=== PATIENT | male | born 1960 | race Caucasian/White ===

== ENCOUNTER 2020-04-22 09:06 | Emergency (ER) | payer MEDICARE, MEDICAID, SELFPAY ==
[2020-04-22 09:07] VITALS: BP 143/105; PULSE 77; RESP 18; TEMP 36.3; O2SAT 97; BMI 32.5
--- NOTE | 2020-04-22 09:17 | ED_ITS ---
HPI - Abdominal Pain General: Chief Complaint: Abdominal Pain Stated Complaint: POSSIBLE HERNIA Time Seen by Provider: 04/22/20 09:08 Source: patient and other (caregiver) Mode of arrival: ambulatory Limitations: no limitations History of Present Illness: HPI narrative: Patient is a 59-year-old male who presents to ED today along with his caregiver for complaints of an increasingly painful umbilical hernia. Caregiver states that patient has had the hernia almost his entire life. He states over the past year he has intermittently began to complain of pain and has even more so been complaining over the past few weeks. Patient was seen by their PCP and referred to the emergency department for further evaluation. They have never sought evaluation from a general surgeon previously. Patient is still passing gas and having normal bowel movements. He has not been running fevers. No vomiting. MD elicited complaint: other (umbilical hernia) Pain Consistency: intermittent Location: Periumbilical Radiation: none Migration to: no migration Associated Symptoms: Denies change in bowel habits, change in stool character, chills, diarrhea, dysuria, fever(s), nausea and vomiting Review of Systems Const: Denies: fever(s), chills, body aches, fatigue or malaise Card: Denies: chest pain Resp: Denies: dyspnea GI: Reports: abdominal pain (intermittent); Denies: nausea, vomiting, diarrhea, change in bowel habits, pain on defecation or change in stool character : Denies: flank pain, difficulty urinating, dysuria, urinary frequency, urinary urgency or urinary hesitancy Physical Exam Const: COMMON NORMALS: no acute distress, average body habitus, patient oriented x3, no limitations, healthy appearing, alert and well nourished Resp: COMMON NORMALS: normal respiratory effort and clear to auscultation bilaterally AUSCULTATION: clear to auscultation bilaterally Cardio: COMMON NORMALS: regular rate and regular rhythm RATE: regular rate RHYTHM: regular rhythm GI: COMMON NORMALS: Soft to palpation, No hepatosplenomegaly present and no masses INSPECTION: Yes other (umbilical hernia) AUSCULTATION: Yes normoactive bowel sounds PALPATION: Yes Soft to palpation, Yes Tenderness to palpation present (GI) (mild tenderness over umbilical hernia) and Yes No hepatosplenomegaly present Neuro: COMMON NORMALS: patient oriented x3 SENSORIUM/ORIENTATION: Yes alert Course Vital Signs: Vital signs: Vital Signs Temperature 97.3 F L 04/22/20 09:07 Pulse Rate 77 04/22/20 09:07 Respiratory Rate 18 04/22/20 09:07 Blood Pressure 143/105 04/22/20 09:07 Pulse Oximetry 97 04/22/20 09:07 MDM - Abdominal Pain MDM Narrative: Medical decision making narrative: Umbilical hernia has been present for several years now and caregiver thinks it has been present since . It is not reducible on exam however patient tells me it never has been able to be reduced. CT scan shows fat-containing umbilical hernia. No obstruction. Patient's vitals and labs all are non-concerning. He is stable to follow-up with general surgery as an outpatient at this time. Strict return to ED precautions given. Lab Data: Labs: Lab Results 04/22/20 04/22/20 04/22/20 Range/Units 09:34 09:34 09:34 WBC 8.6 (4.0-10.0) 10^3/ uL RBC 5.25 (4.1-5.3) 10^6/u L Hgb 15.6 (11.7-16.6) g/dL Hct 47.8 (42.0-52.0) % MCV 91.0 (80-94) fL MCH 29.7 (28.0-34.0) pg MCHC 32.6 (30.0-36.0) g/dL RDW 13.6 (12.1-15.1) % Plt Count 161 (130-400) 10^3/c mm MPV 12.1 H (7.4-10.4) fL Neut % (Auto) 59.5 % Lymph % (Auto) 28.0 % Camp % (Auto) 7.4 % Eos % (Auto) 3.5 % Baso % (Auto) 0.9 % Neut # (Auto) 5.10 (1.8-7.7) 10^3/u L Lymph # (Auto) 2.4 (0.8-4.8) 10^3/u L Camp # (Auto) 0.6 (0.2-0.9) 10^3/u L Eos # (Auto) 0.3 (0.0-0.8) 10^3/u L Baso # (Auto) 0.1 (0.0-0.1) 10^3/u L Nucleated RBC % (a uto) 0 % Nucleated RBCs # 0.0 /100WBC Sodium 140 (136-145) mmol/L Potassium 4.6 (3.5-5.1) mmol/L Chloride 107 (98-107) mmol/L Carbon Dioxide 23 (22-29) mmol/L Anion Gap 14.6 (5-19) BUN 18 (6-20) mg/dL Creatinine 0.6 L (0.7-1.2) mg/dL GFR Calculation 138.9 H (90-130) mL/min Glucose 157 H (65-115) mg/dL Calculated Osmolal ity 295 (285-295) mOsm/k g Lactic Acid 1.5 (0.5-2.2) mmol/L Calcium 9.4 (8.5-10.5) mg/dL Total Bilirubin 0.2 (0.15-1.2) mg/dL AST 27 (0-40) U/L ALT 47 H (0-41) U/L Alkaline Phosphata se 91 (40-130) IU/L Total Protein 7.2 (6.6-8.7) g/dL Albumin 4.5 (3.5-5.2) g/dL Globulin 2.7 (1.3-4.6) g/dL Discharge Plan Discharge Patient Disposition: Home Clinical Impression: Hernia, umbilical Qualifiers: Obstruction and gangrene presence: without obstruction or gangrene Qualified Code(s): K42.9 - Umbilical hernia without obstruction or gangrene Condition: Stable Prescriptions: No Action ibuprofen 800 mg tablet 800 mg PO TID PRN (Reason: Pain) RF: 0 tizanidine 4 mg tablet 4 mg PO TID PRN (Reason: Muscle Pain) RF: 0 acetaminophen-codeine 300-30 mg tablet 1 tab PO TID PRN (Reason: Pain) RF: 0 Discharge Orders: Discharge Order (Routine); Ordered 04/22/20 Ordered By: Melissa Kahn Patient Instructions: Abdominal Hernia, Umbilical Hernia (ED), Umbilical Hernia Activity Restrictions/Additional Instructions: As discussed case management will contact you and set you up with your general surgery appointment. You need to return to the emergency department for worsening pain, inability to pass gas or have a bowel movement, repetitive episodes of vomiting, fevers, or any other concerns you may have. Coding Level of Care Code ED Business Education Instructor for Chg Fwd Exam Expanded Problem Focused
--- NOTE | 2020-04-22 09:22 | CT_ITS ---
WS: [id number] CT ABDOMEN PELVIS TECHNIQUE: Contrast-enhanced CT of the abdomen and pelvis with coronal and sagittal reformatted image s. CLINICAL INFORMATION: painful umbilical hernia COMPARISON: None. DLP: 1498.[address] scans at [facility] use at least one of these dose optimization techniques: automat ed exposure control; mA and/or kV adjustment per patient size (includes targeted exams where dose is matched to clinical indication); or iterative reconstruction. FINDINGS: Fat-containing umbilical hernia. Hernia mouth measures 1.5 cm with herniated omental fat. No herniate d bowel. No fluid collection. Herniated fat with supplying vessels measures approximately 7.5 8.6 x 9 .1 cm. Lung bases are well aerated. Mild diffuse fatty infiltration of the liver. Normal spleen. Normal GE j unction. Normal pancreas. Adrenal glands are normal. Gallbladder is contracted. Portal veins and sple quoc vein are normal. Normal caliber abdominal aorta. Adrenal glands are normal. Normal renal parenchymal enhancement. No hydronephrosis. Small bilateral r enal cysts. Normal sigmoid colon. No evidence of small or large bowel obstruction. No periaortic or pelvic lympha denopathy. Fat-containing right inguinal hernia. CT/CT abdomen pelvis w con* [id number] IMPRESSION: 1. Fat-containing umbilical hernia with herniated omental fat. No herniated jemima wel. Hernia mouth opening measures 1.5 CM. Fat-containing hernia measures 7.5 x 8.6 x 9.1 CM. No fluid collections. 2. Numerous small bilateral renal cysts. 3. No evidence of small or large bowel obstruction. 4. Slightly enlarged prostate measuring 3.9 cm. 5. No other significant findings. Notified KRAIG Ruano at 04/22/2020 10:34 AM.
[2020-04-22 09:42] LABS: Basophils # 0.1 10^3/uL (0.0-0.1); Basophils % 0.9 %; Eosinophils # 0.3 10^3/uL (0.0-0.8); Eosinophils % 3.5 %; Hematocrit 47.8 % (42.0-52.0); Hemoglobin 15.6 g/dL (11.7-16.6); Lymphocytes # 2.4 10^3/uL (0.8-4.8); Mean Corpuscular HGB Conc 32.6 g/dL (30.0-36.0); Mean Corpuscular Hemoglobin 29.7 pg (28.0-34.0); Mean Platelet Volume 12.1 fL (7.4-10.4); Monocytes # 0.6 10^3/uL (0.2-0.9); Monocytes % 7.4 %; Neutrophils % 59.5 %; Nucleated Red Blood Cells % 0 %; Platelet Count 161 10^3/cmm (130-400); Red Blood Count 5.25 10^6/uL (4.1-5.3); Red Cell Distribution Width 13.6 % (12.1-15.1); White Blood Count 8.6 10^3/uL (4.0-10.0)
[2020-04-22] MEDS: iohexol 300 mg/mL 100 mL Btl IV (09:53)
[2020-04-22 10:05] LABS: Lactic Sepsis W/Reflex 1.5 mmol/L (0.5-2.2)
[2020-04-22 10:06] LABS: Alanine Aminotransferase 47 U/L (0-41); Albumin Level 4.5 g/dL (3.5-5.2); Alkaline Phosphatase 91 IU/L (40-130); Anion Gap 14.6 (5-19); Aspartate Amino Transferase 27 U/L (0-40); Blood Urea Nitrogen 18 mg/dL (6-20); Calcium 9.4 mg/dL (8.5-10.5); Carbon Dioxide 23 mmol/L (22-29); Chloride 107 mmol/L (98-107); Globulin 2.7 g/dL (1.3-4.6); Glomerular Filtration Rate 138.9 mL/min (90-130); Glucose 157 mg/dL (65-115); Osmolality Calculated 295 mOsm/kg (285-295); Potassium 4.6 mmol/L (3.5-5.1); Sodium 140 mmol/L (136-145); Total Bilirubin 0.2 mg/dL (0.15-1.2); Total Protein 7.2 g/dL (6.6-8.7)
[2020-04-22 11:02] VITALS: BP 127/92; PULSE 69; RESP 18; O2SAT 95
--- NOTE | 2020-04-22 11:07 | DCPLANNER ---
college or university business manager had message to schedule a follow up appointment for patient with general surgery. college or university business manager called [facility], spoke with Estrella. college or university business manager was told that patients information would be printed and reviewed. Clinic will call patient with appointment information.
--- NOTE | 2020-04-28 10:27 | DCPLANNER ---
Addendum entered by Elena Chandler 05/06/20 11:45: Appointment scheduled for 05.03.20 with [facility] - was cancelled. Original Note: Patient has a follow up appointment scheduled for Sunday, May 03, 2020 at 11:[address] Yu. Clinic will call patient with appointment information..
--- NOTE | 2020-05-10 10:34 | DCPLANNER ---
Patient had a follow up appointment scheduled for 05.03.20 with [facility] - patient did attend appointment.
== END 2020-04-22 11:02 | disposition home or self-care (01) ==
PROVIDERS: Emergency Provider Physician Assistant
DX: K42.9 Umbilical hernia without obstruction or gangrene (principal)
CPT/HCPCS: 12345; 74177; 80053; 83605; 85025; 99282; 99283; Q9967